=== PATIENT | male | born 1965 ===

== ENCOUNTER 2018-03-06 11:10 | Emergency (ER) | payer OTHER ==
[2018-03-06 11:19] VITALS: RESP 20
[2018-03-06] MEDS ORDERED: Sodium Chloride 0.9% 1,000 ML IV SCH (12:45)
--- NOTE | 2018-03-06 13:19 | CT ---
PROCEDURE: CT HEAD WITHOUT CONTRAST. HISTORY: headache COMPARISON: None available. TECHNIQUE: Axial computed tomography images were obtained through the head/brain without intravenous contrast. Radiation dose: Total exam DLP = 666.05 mGy-cm. This CT exam was performed using one or more of the following dose reduction techniques: Automated exposure control, adjustment of the mA and/or kV according to patient size, and/or use of iterative reconstruction technique. FINDINGS: HEMORRHAGE: No intracranial hemorrhage. BRAIN: No mass effect or edema. No atrophy or chronic microvascular ischemic changes. VENTRICLES: Unremarkable. No hydrocephalus. CALVARIUM: Unremarkable. PARANASAL SINUSES: Unremarkable as visualized. No significant inflammatory changes. MASTOID AIR CELLS: Unremarkable as visualized. No inflammatory changes. OTHER FINDINGS: None. IMPRESSION: Normal CT of the Head. No intracranial mass, hemorrhage or evidence of acute infarct.
[2018-03-06 13:25] LABS: BASO % 0.6 % (0.0-2.0); EOS % 0.4 % (0.0-4.0); LYMPH # 1.5 K/uL (1.0-4.3); LYMPH % 20.6 % (20.0-40.0); MEAN CELL VOLUME 93.3 fl (80.0-94.0); MEAN CORPUSCULAR HEMOGLOBIN 32.1 pg (27.0-31.0); MEAN CORPUSCULAR HGB CONC 34.4 g/dL (33.0-37.0); MEAN PLATELET VOLUME 8.8 fl (7.2-11.7); MONO # 0.4 K/uL (0.0-0.8); MONO % 5.7 % (0.0-10.0); NEUT # 5.4 K/uL (1.8-7.0); NEUT % 72.7 % (50.0-75.0); NRBC % 0.1 % (0.0-0.0); RBC 5.29 Mil/uL (4.40-5.90); RED CELL DISTRIBUTION WIDTH 12.7 % (11.5-14.5); WHITE BLOOD COUNT 7.5 K/uL (4.8-10.8)
--- NOTE | 2018-03-06 13:42 | CARD ---
APPROVED REPORT EKG Measurement Heart [id number] <Conclusion> Normal sinus rhythm Rightward axis Borderline ECG
[2018-03-06 13:44] LABS: ALBUMIN 4.3 g/dL (3.5-5.0); ALT/SGPT 44 U/L (21-72); AST/SGOT 34 U/L (17-59); BLOOD UREA NITROGEN 14 mg/dl (9-20); CALCIUM 9.7 mg/dL (8.4-10.2); GFR AFRICAN-AMERICAN > 60; GFR NON-AFRICAN AMERICAN > 60
--- NOTE | 2018-03-06 13:51 | ED PDOC ---
HPI: Headache Time Seen by Provider: 03/06/18 11:54 Chief Complaint (Nursing): Dizziness/Lightheaded Chief Complaint (Provider): Headache History Per: Patient History/Exam Limitations: no limitations Onset/Duration Of Symptoms: Hrs (07:00 ) Current Symptoms Are (Timing): Still Present Pain Scale Rating Of: 4 Preceeding Symptoms: None Associated Symptoms: denies: Photophobia, Blurred Vision, Nausea, Vomiting, Extremity Weakness Additional Complaint(s): Pato Taylor is a 52 year old male, with a past medical history of migraines, who was brought to the emergency department for evaluation of a 4/10 occipital headache onset since 07:00 this morning. Patient states he had a similar episode yesterday at which time it was associated with dizziness. Patient was seen and evaluated at [facility], he had normal blood work and was given medications through IV and discharged home. Patient states when headache returned this morning, he came back to ED because he wasn't given any prescriptions. He took no medications prior to arrival. Patient denies any fever , chills, neck pain or stiffness, weakness, numbness, changes in vision, nausea , vomit, photophobia, phonophobia, abdominal pain, chest pain or shortness of breath. No further medical complaints. PMD: None provided. Past Medical History Reviewed: Historical Data, Nursing Documentation, Vital Signs Vital Signs: Last Vital Signs Temp 98.6 F 03/06/18 11:16 Pulse 72 03/06/18 11:16 Resp 20 03/06/18 11:16 BP 122/73 03/06/18 11:16 Pulse Ox 98 03/06/18 11:16 - Medical History PMH: Migraine - Surgical History Surgical History: No Surg Hx - Family History Family History: States: No Known Family Hx - Social History Current smoker - smoking cessation education provided: No Alcohol: Social Drugs: Denies - Home Medications Home Medications: Ambulatory Orders Medication Instructions Recorded Meclizine [Meclizine*] 25 mg PO Q6 PRN #12 tab 03/06/18 Naproxen [Naprosyn] 500 mg PO BID PRN #20 tablet 03/06/18 - Allergies Allergies/Adverse Reactions: Allergies Allergy/AdvReac Type Severity Reaction Status Date / Time No Known Allergies Allergy Verified 03/06/18 11:15 Review of Systems ROS Statement: Except As Marked, All Systems Reviewed And Found Negative Constitutional: Negative for: Fever, Chills Eyes: Negative for: Vision Change Cardiovascular: Negative for: Chest Pain Respiratory: Negative for: Shortness of Breath Gastrointestinal: Negative for: Nausea, Vomiting, Abdominal Pain Musculoskeletal: Negative for: Neck Pain Neurological: Positive for: Headache (occipital). Negative for: Weakness, Numbness Physical Exam - Reviewed Nursing Documentation Reviewed: Yes Vital Signs Reviewed: Yes - Physical Exam Comments: GENERAL APPEARANCE: Patient is awake, alert, oriented x 3, in no acute distress. Resting comfortably. Nontoxic appearing. SKIN: Warm, dry; (-) cyanosis; (-) rash. HEAD: (-) scalp swelling or tenderness, (-) temporal artery tenderness. EYES: (-) conjunctival pallor, (-) scleral icterus. ENMT: TMs: (-) bulging (-) erythema. Ear canals patent bilaterally (-) cerumen impaction. Pharynx: clear (-) erythema (-) exudate, uvula midline. (-) sinus tenderness; mucous membranes are moist. Airway patent, (-) stridor. NECK: Supple, FROM (-) tenderness, (-) stiffness, (-) meningismus, (-) lymphadenopathy. CHEST AND RESPIRATORY: (-) rales, (-) rhonchi, (-) wheezes; breath sounds equal bilaterally. Speaking in full sentences, respirations even and nonlabored. HEART AND CARDIOVASCULAR: (-) irregularity; (-) murmur, (-) gallop. ABDOMEN AND GI: Soft; (-) tenderness (-) guarding (-) distention. EXTREMITIES: (-) deformity. NEURO AND PSYCH: Mental status as above. 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 Strength symmetric. Gait steady, speech clear. - Laboratory Results Result Diagrams: 03/06/18 13:20 03/06/18 13:20 - ECG O2 Sat by Pulse Oximetry: 98 (RA) Pulse Ox Interpretation: Normal Medical Decision Making Medical Decision Making: Time: 11:54 Initial Impression: headache Initial Plan: --Head w/o contrast [CT] --EKG --CMP --CBC w/ differential --Antivert 25 mg PO --Sodium Chloride 1,000 ml IV 1,000 mls/hr --Toradol 30 mg IVP --Reevaluation --IV access [id number] Labs reviewed and grossly unremarkable. CT head reviewed, radiology report follows: PROCEDURE: CT HEAD WITHOUT CONTRAST. HISTORY: headache COMPARISON: None available. TECHNIQUE: Axial computed tomography images were obtained through the head/brain without intravenous contrast. Radiation dose: Total exam DLP = 666.05 mGy-cm. This CT exam was performed using one or more of the following dose reduction techniques: Automated exposure control, adjustment of the mA and/or kV according to patient size, and/or use of iterative reconstruction technique. FINDINGS: HEMORRHAGE: No intracranial hemorrhage. BRAIN: No mass effect or edema. No atrophy or chronic microvascular ischemic changes. VENTRICLES: Unremarkable. No hydrocephalus. CALVARIUM: Unremarkable. PARANASAL SINUSES: Unremarkable as visualized. No significant inflammatory changes. MASTOID AIR CELLS: Unremarkable as visualized. No inflammatory changes. OTHER FINDINGS: None. IMPRESSION: Normal CT of the Head. No intracranial mass, hemorrhage or evidence of acute infarct. EKG: NSR @ 70bpm, (-) ST elevation, QTc 397 On re-evaluation, patient reports improvement of symptoms, denies any headache or dizziness. On exam, patient remains AAOx3, in no acute distress. Lungs clear to auscultation, cardiac RRR, abdomen soft, non-tender, repeat neuro exam shows no focal findings. VSS, stable for discharge. Lab/Diagnostic results d/w the patient in great detail. Diagnosis of headache, dizziness d/w the patient. Based on history, exam and diagnostic results, plan will be for outpatient follow up with clinic. Patient instructed to follow-up with pmd / referral provided / the clinic in 1- 2 days without fail. Advised to take medication as prescribed. Return to the emergency room at any time for any new or worsening symptoms. Patient states he fully agrees with and understands discharge instructions. States that he agrees with the plan and disposition. Verbalized and repeated discharge instructions and plan. I have given the patient opportunity to ask any additional questions. Scribe Attestation: Documented by Matthew Samano, acting as a scribe for Lanie Dorado PA-C. Provider Scribe Attestation: All medical record entries made by the Scribe were at my direction and personally dictated by me. I have reviewed the chart and agree that the record accurately reflects my personal performance of the history, physical exam, medical decision making, and the department course for this patient. I have also personally directed, reviewed, and agree with the discharge instructions and disposition. Disposition - Clinical Impression Clinical Impression: Dizziness, Headache - Patient ED Disposition Is Patient to be Admitted: No Counseled Patient/Family Regarding: Studies Performed, Diagnosis, Need For Followup, Rx Given - Disposition Referrals: [facility] [Outside] Disposition: Routine/Home Disposition Time: 14:27 Condition: STABLE Additional Instructions: FOLLOW UP WITH CLINIC IN 1-2 DAYS WITHOUT FAIL. RETURN TO ED WITH ANY NEW OR WORSENING SYMPTOMS. Thank you for letting us take care of you today. You were treated for headache, dizziness. The emergency medical care you received today was directed at your acute symptoms. If you were prescribed any medication, please fill it and take as directed. It may take several days for your symptoms to resolve. Return to the Emergency Department if your symptoms worsen, do not improve, or if you have any other problems. Please contact your doctor in 2 days for re-evaluation and follow up / or call one of the physicians/clinics you have been referred to that are listed on the Patient Visit Information form that is included in your discharge packet. Bring any paperwork you were given at discharge with you along with any medications you are taking to your follow up visit. Our treatment cannot replace ongoing medical care by a primary care provider (PCP) outside of the emergency department. Prescriptions: Meclizine [Meclizine*] 25 mg PO Q6 PRN #12 tab PRN Reason: Dizziness Naproxen [Naprosyn] 500 mg PO BID PRN #20 tablet PRN Reason: Headache Instructions: Headache, Adult, Dizziness, Nonvertigo, (DC), Migraine Headaches in Adults Forms: [employer] (Thai) Print Language: INDONESIAN - POA Present On Arrival: None Results - Lab Results Lab Results: 03/06/18 03/06/18 03/06/18 13:20 13:20 11:34 WBC 7.5 RBC 5.29 Hgb 17.0 Hct 49.4 MCV 93.3 MCH 32.1 H MCHC 34.4 RDW 12.7 Plt Count 197 MPV 8.8 Neut % (Auto) 72.7 Lymph % (Auto) 20.6 Brooks % (Auto) 5.7 Eos % (Auto) 0.4 Baso % (Auto) 0.6 Neut # (Auto) 5.4 Lymph # (Auto) 1.5 Brooks # (Auto) 0.4 Eos # (Auto) 0.0 Baso # (Auto) 0.0 Sodium 140 Potassium 4.2 Chloride 106 Carbon Dioxide 20 L Anion Gap 18 BUN 14 Creatinine 0.8 Est GFR ( Amer) > 60 Est GFR (Non-Af Amer) > 60 POC Glucose (mg/dL) 95 Random Glucose 107 Calcium 9.7 Total Bilirubin 0.7 AST 34 ALT 44 Alkaline Phosphatase 91 Total Protein 8.6 H Albumin 4.3 Globulin 4.3 H Albumin/Globulin Ratio 1.0
[2018-03-06 14:59] VITALS: BP 103/66; PULSE 70; TEMP 98.2
[2018-03-08 21:14] VITALS: O2SAT 98
== END 2018-03-06 15:03 | disposition home or self-care (01) ==
LOC: H.ER 11:10 → EDBD 11:10 → H.ER 15:03
DX: R42 Dizziness and giddiness (principal); R51 Headache
CPT/HCPCS: 70450; 80053; 82948; 85025; 93005; 96374; 99284; J1885; J7030

== ENCOUNTER 2018-06-30 11:11 | Emergency (ER) | payer OTHER ==
[2018-06-30 11:51] VITALS: RESP 18; TEMP 97.9
[2018-06-30] MEDS ORDERED: Sodium Chloride 0.9% 1,000 ML IV STA (12:11)
[2018-06-30 13:03] LABS: URINE BILIRUBIN NEGATIVE (NEGATIVE); URINE BLOOD NEGATIVE (NEGATIVE); URINE CLARITY CLEAR (Clear); URINE COLOR COLORLESS (YELLOW); URINE GLUCOSE (UA) NEG (Normal); URINE LEUKOCYTE ESTERASE NEG Leu/uL (Negative); URINE PROTEIN NEGATIVE (NEGATIVE); URINE UROBILINOGEN 0.2-1.0 mg/dL (0.2-1.0)
[2018-06-30 13:06] LABS: BASO # 0.1 K/uL (0.0-0.2); BASO % 0.6 % (0.0-2.0); EOS % 0.3 % (0.0-4.0); HEMOGLOBIN 16.7 g/dL (12.0-18.0); LYMPH # 1.7 K/uL (1.0-4.3); LYMPH % 17.8 % (20.0-40.0); MEAN CELL VOLUME 92.3 fl (80.0-94.0); MEAN CORPUSCULAR HEMOGLOBIN 32.4 pg (27.0-31.0); MEAN CORPUSCULAR HGB CONC 35.1 g/dL (33.0-37.0); MEAN PLATELET VOLUME 9.1 fl (7.2-11.7); MONO # 0.6 K/uL (0.0-0.8); MONO % 6.5 % (0.0-10.0); NEUT % 74.8 % (50.0-75.0); NRBC % 0.1 % (0.0-0.0); RBC 5.16 Mil/uL (4.40-5.90); RED CELL DISTRIBUTION WIDTH 12.6 % (11.5-14.5); WHITE BLOOD COUNT 9.4 K/uL (4.8-10.8)
[2018-06-30 13:16] LABS: ALB/GLOB RATIO 1.1 (1.0-2.1); ALBUMIN 4.4 g/dL (3.5-5.0); ALT/SGPT 49 U/L (21-72); AST/SGOT 34 U/L (17-59); BLOOD UREA NITROGEN 14 mg/dl (9-20); CALCIUM 9.4 mg/dL (8.4-10.2); GFR NON-AFRICAN AMERICAN > 60
--- NOTE | 2018-06-30 13:41 | ED PDOC ---
HPI: Abdomen Time Seen by Provider: 06/30/18 12:03 Chief Complaint (Nursing): Abdominal Pain Chief Complaint (Provider): Abdominal Pain History Per: Patient History/Exam Limitations: no limitations Onset/Duration Of Symptoms: Days (x1 day) Current Symptoms Are (Timing): Constant Associated Symptoms: Diarrhea, Other (dysuria with burning). denies: Fever, Vomiting Exacerbating Factors: Other (urination) Additional Complaint(s): France Root is a 52 year old male with no past medical history, who presents to the emergency department complaining of constant abdominal pain, onset x1 day ago. Patient states his pain is located in the lower abdomen and is worse upon urination. He further states he feels burning sensation upon dysuria and also reports to have resolved diarrhea. Patient denies vomiting or fever. PMD: No provider Past Medical History Reviewed: Historical Data, Nursing Documentation, Vital Signs Vital Signs: Last Vital Signs Temp 97.9 F 06/30/18 11:48 Pulse 75 06/30/18 11:48 Resp 18 06/30/18 11:48 BP 141/89 06/30/18 11:48 Pulse Ox 98 06/30/18 11:48 - Medical History PMH: Migraine - Surgical History Surgical History: No Surg Hx - Family History Family History: States: Unknown Family Hx - Social History Current smoker - smoking cessation education provided: No Ex-Smoker (has not smoked in the last 12 months): No Alcohol: None Drugs: Denies - Home Medications Home Medications: Ambulatory Orders Medication Instructions Recorded Naproxen [Naprosyn] 500 mg PO BID PRN #20 tablet 03/06/18 RX: Meclizine [Meclizine*] 25 mg PO Q6 PRN #12 tab 03/06/18 Ciprofloxacin HCl [Cipro] 500 mg PO BID #14 tablet 06/30/18 Metronidazole [Flagyl] 500 mg PO BID #14 tab 06/30/18 - Allergies Allergies/Adverse Reactions: Allergies Allergy/AdvReac Type Severity Reaction Status Date / Time No Known Allergies Allergy Verified 06/30/18 11:48 Review of Systems ROS Statement: Except As Marked, All Systems Reviewed And Found Negative Constitutional: Negative for: Fever Gastrointestinal: Positive for: Abdominal Pain (lower), Diarrhea (resolved). Negative for: Vomiting Genitourinary Male: Positive for: Dysuria Physical Exam - Reviewed Nursing Documentation Reviewed: Yes Vital Signs Reviewed: Yes - Physical Exam Appears: Positive for: Non-toxic, No Acute Distress Head Exam: Positive for: ATRAUMATIC, NORMOCEPHALIC Skin: Positive for: Normal Color, Warm, Dry Eye Exam: Positive for: EOMI Cardiovascular/Chest: Positive for: Regular Rate, Rhythm Respiratory: Positive for: Normal Breath Sounds. Negative for: Respiratory Distress Gastrointestinal/Abdominal: Positive for: Soft, Tenderness (suprapubic and RUQ tenderness ). Negative for: Distended Extremity: Positive for: Normal ROM Neurologic/Psych: Positive for: Alert, Oriented (x3) - Laboratory Results Result Diagrams: 06/30/18 13:00 06/30/18 13:00 - ECG O2 Sat by Pulse Oximetry: 98 (RA) Pulse Ox Interpretation: Normal - Progress Re-evaluation Time: 15:30 Condition: Re-examined, Improved Medical Decision Making Medical Decision Making: Initial Time: 12:11 Initial Impression: Abdominal pain and dysuria differential diagnosis includes but not limited to UTI, acute appendicitis and kidney stones. Initial Plan: --CT Abd and pelvis IV contrast --ED urine dipstick --Morphine 2 mg IVP --Sodium Chloride 1,000 ml --Urine culture --Urinalysis --CMP --CBC with differential Time: 15:03 CT Abdomen and Pelvis: FINDINGS: LOWER THORAX: Limited bilateral basilar dependent atelectasis identified as well as a small hiatal hernia. Cardiac size upper limits of normal. LIVER: Unremarkable. No gross lesion or ductal dilatation. GALLBLADDER AND BILE DUCTS: Unremarkable. PANCREAS: Unremarkable. No gross lesion or ductal dilatation. SPLEEN: Unremarkable. ADRENALS: Unremarkable. No mass. KIDNEYS AND URETERS: There is an 8 mm lucency at the upper pole left kidney difficult to characterize due to its small size. Streaky artifacts limiting accurate internal measurement. No obstructive uropathy bilaterally. No suspicious findings right kidney. VASCULATURE: Unremarkable. No aortic aneurysm. No aortic atherosclerotic calcification or mural plaque present. BOWEL: Evaluation of the gastrointestinal tract is limited due to the lack of oral contrast administration. Sigmoid diverticulosis identified with thickening of the mid to distal segment and local pericolic reactive change compatible with diverticulitis. No definite abscess formation appreciable at this time or free intra peritoneal gas collection. APPENDIX: Normal appendix. PERITONEUM: Pericolic reaction as discussed above with remainder the perineum unremarkable. LYMPH NODES: Unremarkable. No enlarged lymph nodes. BLADDER: Unremarkable. REPRODUCTIVE: Mild prostate enlargement to 5.7 cm. BONES: No acute fracture. OTHER FINDINGS: None. IMPRESSION: 1. Evidence of sigmoid diverticulitis at mid to distal sigmoid colon. No free intra peritoneal gas collection or abscess appreciable at this time. 2. No acute upper or mid abdominal findings. Small lucency is difficult to characterize at the upper pole left kidney. 3. Enlarged prostate gland. Scribe Attestation: Documented by Titus Ayala, acting as a scribe for Zulay Barahona MD. Provider Scribe Attestation: All medical record entries made by the Scribe were at my direction and personally dictated by me. I have reviewed the chart and agree that the record accurately reflects my personal performance of the history, physical exam, medical decision making, and the department course for this patient. I have also personally directed, reviewed, and agree with the discharge instructions and disposition. Disposition - Clinical Impression Clinical Impression: Diverticulitis - Patient ED Disposition Is Patient to be Admitted: No Doctor Will See Patient In The: Office Counseled Patient/Family Regarding: Studies Performed, Diagnosis, Need For Followup - Disposition Referrals: [facility] [Outside] [facility] [Outside] Disposition: Routine/Home Disposition Time: 15:30 Condition: GOOD Additional Instructions: [place], thank you for letting us take care of you today. Your provider was Zulay Barahona MD and you were treated for ABD PAIN. The emergency medical care you received today was directed at your acute symptoms. If you were prescribed any medication, please fill it and take as directed. It may take se veral days for your symptoms to resolve. Return to the Emergency Department if your symptoms worsen, do not improve, or if you have any other problems. Please contact your doctor or call one of the physicians/clinics you have been referred to that are listed on the Patient Visit Information form that is included in your discharge packet. Bring any paperwork you were given at discharge with you along with any medications you are taking to your follow up visit. Our treatment cannot replace ongoing medical care by a primary care provider outside of the emergency department. Thank you for allowing the [facility] team to be part of your care today. If you had an X-Ray or CT scan: A Radiologist will review the ED reading if any change in treatment is needed we will contact you. If you had a blood, urine, or wound culture: It will take several days for the results, if any change in treatment is needed we will contact you. If you had an STI test: It will take 48 hours for the results. Please call after 1 week if you have not heard back. Prescriptions: Ciprofloxacin HCl [Cipro] 500 mg PO BID #14 tablet Metronidazole [Flagyl] 500 mg PO BID #14 tab Instructions: Diverticulitis (DC) Forms: [facility] (Greek) Print Language: CITIZEN OF [place]
--- NOTE | 2018-06-30 15:07 | CT ---
Date of service: 06/30/2018 PROCEDURE: CT Abdomen and Pelvis with contrast HISTORY: RLQ and suprapubic pain dysuria COMPARISON: None. TECHNIQUE: Following the intravenous administration of iodinated contrast material, a CT examination of the abdomen and pelvis performed from the domes of the diaphragms to the symphysis pubis with reformatted datasets provided in axial, sagittal and coronal planes. Oral contrast was not administered as per referring physician request. Coronal and sagittal reformats were generated. contrast dose: Omnipaque 300, 95 cc Radiation dose: Total exam DLP = 558.37 mGy-cm. This CT exam was performed using one or more of the following dose reduction techniques: Automated exposure control, adjustment of the mA and/or kV according to patient size, and/or use of iterative reconstruction technique. FINDINGS: LOWER THORAX: Limited bilateral basilar dependent atelectasis identified as well as a small hiatal hernia. Cardiac size upper limits of normal. LIVER: Unremarkable. No gross lesion or ductal dilatation. GALLBLADDER AND BILE DUCTS: Unremarkable. PANCREAS: Unremarkable. No gross lesion or ductal dilatation. SPLEEN: Unremarkable. ADRENALS: Unremarkable. No mass. KIDNEYS AND URETERS: There is an 8 mm lucency at the upper pole left kidney difficult to characterize due to its small size. Streaky artifacts limiting accurate internal measurement. No obstructive uropathy bilaterally. No suspicious findings right kidney. VASCULATURE: Unremarkable. No aortic aneurysm. No aortic atherosclerotic calcification or mural plaque present. BOWEL: Evaluation of the gastrointestinal tract is limited due to the lack of oral contrast administration. Sigmoid diverticulosis identified with thickening of the mid to distal segment and local pericolic reactive change compatible with diverticulitis. No definite abscess formation appreciable at this time or free intra peritoneal gas collection. APPENDIX: Normal appendix. PERITONEUM: Pericolic reaction as discussed above with remainder the perineum unremarkable. LYMPH NODES: Unremarkable. No enlarged lymph nodes. BLADDER: Unremarkable. REPRODUCTIVE: Mild prostate enlargement to 5.7 cm. BONES: No acute fracture. OTHER FINDINGS: None. IMPRESSION: 1. Evidence of sigmoid diverticulitis at mid to distal sigmoid colon. No free intra peritoneal gas collection or abscess appreciable at this time. 2. No acute upper or mid abdominal findings. Small lucency is difficult to characterize at the upper pole left kidney. 3. Enlarged prostate gland.
[2018-06-30 19:29] VITALS: BP 127/67; PULSE 78
[2018-07-01 07:31] VITALS: O2SAT 98
== END 2018-06-30 18:30 | disposition home or self-care (01) ==
LOC: H.ER 11:11
DX: K57.32 Diverticulitis of large intestine without perforation or abscess without bleeding (principal); N40.0 Benign prostatic hyperplasia without lower urinary tract symptoms; Z87.891 Personal history of nicotine dependence
CPT/HCPCS: 74177; 80053; 81003; 85025; 87086; 96374; 99283; J2270; J7030

== ENCOUNTER 2018-08-20 07:59 | Emergency (ER) | payer OTHER ==
[2018-08-20 08:10] VITALS: RESP 18; O2SAT 99
[2018-08-20] MEDS ORDERED: Sodium Chloride 0.9% 1,000 ML IV STA (08:26)
--- NOTE | 2018-08-20 08:31 | ED PDOC ---
HPI: Abdomen Time Seen by Provider: 08/20/18 08:17 Chief Complaint (Nursing): Abdominal Pain Chief Complaint (Provider): Abdominal Pain History Per: Patient History/Exam Limitations: no limitations Onset/Duration Of Symptoms: Days (x2) Current Symptoms Are (Timing): Still Present Associated Symptoms: Diarrhea. denies: Fever Additional Complaint(s): 52 year old male presents to the ED with lower abdominal pain associated with diarrhea and increased flatulence for 2 days. Patient denies rectal bleeding, fever, or vomiting. He states he was seen here in June this year for similar symptoms and was diagnosed with diverticulitis. He was treated with Cipro and Flagyl at that time. PMD: none Past Medical History Reviewed: Historical Data, Nursing Documentation, Vital Signs Vital Signs: Last Vital Signs Temp 98.4 F 08/20/18 08:09 Pulse 65 08/20/18 08:09 Resp 18 08/20/18 08:09 BP 151/83 H 08/20/18 08:09 Pulse Ox 99 08/20/18 08:09 - Medical History PMH: Diverticulitis, Migraine - Surgical History Surgical History: No Surg Hx - Family History Family History: States: Unknown Family Hx - Home Medications Home Medications: Ambulatory Orders Medication Instructions Recorded Ciprofloxacin HCl [Cipro] 500 mg PO BID #20 tab 08/20/18 Dicyclomine [Dicyclomine HCl] 10 mg PO Q8 #10 cap 08/20/18 - Allergies Allergies/Adverse Reactions: Allergies Allergy/AdvReac Type Severity Reaction Status Date / Time No Known Allergies Allergy Verified 08/20/18 08:23 Review of Systems ROS Statement: Except As Marked, All Systems Reviewed And Found Negative Constitutional: Negative for: Fever Gastrointestinal: Positive for: Abdominal Pain, Diarrhea, Other (increased flatulence; no rectal bleeding). Negative for: Vomiting Physical Exam - Reviewed Nursing Documentation Reviewed: Yes Vital Signs Reviewed: Yes - Physical Exam Appears: Positive for: Non-toxic, No Acute Distress Head Exam: Positive for: ATRAUMATIC, NORMOCEPHALIC Skin: Positive for: Normal Color, Warm, Dry Eye Exam: Positive for: Normal appearance Neck: Positive for: Normal, Painless ROM Cardiovascular/Chest: Positive for: Regular Rate, Rhythm Respiratory: Positive for: Normal Breath Sounds. Negative for: Wheezing, Respiratory Distress Gastrointestinal/Abdominal: Positive for: Soft, Tenderness (mild bilateral lower abdominal tenderness). Negative for: Guarding, Rebound Extremity: Positive for: Normal ROM Neurologic/Psych: Positive for: Alert, Oriented. Negative for: Motor/Sensory Deficits - Laboratory Results Result Diagrams: 08/20/18 07:45 08/20/18 07:45 - ECG O2 Sat by Pulse Oximetry: 99 (RA) Pulse Ox Interpretation: Normal Medical Decision Making Medical Decision Making: Initial Plan: --CMP --CBC --Bentyl 10mg PO --Sodium chloride 1000mL IV Scribe Attestation: Documented by Brett Green acting as a scribe for Lloyd Steel MD. Provider Scribe Attestation: All medical record entries made by the Scribe were at my direction and personally dictated by me. I have reviewed the chart and agree that the record accurately reflects my personal performance of the history, physical exam, medical decision making, and the department course for this patient. I have also personally directed, reviewed, and agree with the discharge instructions and disposition. Disposition - Clinical Impression Clinical Impression: Diverticular disease - Patient ED Disposition Is Patient to be Admitted: No Counseled Patient/Family Regarding: Studies Performed, Diagnosis, Need For Followup, Rx Given - Disposition Referrals: [facility] [Outside] Raymundo Ibanez MD [Staff Provider] - Disposition: Routine/Home Disposition Time: 09:40 Condition: FAIR Prescriptions: Ciprofloxacin HCl [Cipro] 500 mg PO BID #20 tab Dicyclomine [Dicyclomine HCl] 10 mg PO Q8 #10 cap Instructions: Diverticulosis Forms: [facility] (Japanese) Print Language: BULGARIAN
[2018-08-20 08:40] LABS: BASO % 0.5 % (0.0-2.0); EOS % 0.6 % (0.0-4.0); LYMPH # 1.9 K/uL (1.0-4.3); LYMPH % 26.3 % (20.0-40.0); MEAN CELL VOLUME 95.5 fl (80.0-94.0); MEAN CORPUSCULAR HEMOGLOBIN 32.4 pg (27.0-31.0); MEAN CORPUSCULAR HGB CONC 33.9 g/dL (33.0-37.0); MEAN PLATELET VOLUME 9.4 fl (7.2-11.7); MONO # 0.4 K/uL (0.0-0.8); NEUT # 4.9 K/uL (1.8-7.0); NEUT % 66.6 % (50.0-75.0); NRBC % 0.1 % (0.0-0.0); RBC 4.94 Mil/uL (4.40-5.90); RED CELL DISTRIBUTION WIDTH 12.9 % (11.5-14.5); WHITE BLOOD COUNT 7.3 K/uL (4.8-10.8)
[2018-08-20 08:53] LABS: ALB/GLOB RATIO 1.2 (1.0-2.1); ALBUMIN 4.1 g/dL (3.5-5.0); ALT/SGPT 50 U/L (21-72); AST/SGOT 36 U/L (17-59); BLOOD UREA NITROGEN 14 mg/dl (9-20); CALCIUM 8.8 mg/dL (8.4-10.2); GFR NON-AFRICAN AMERICAN > 60
[2018-08-20 10:32] VITALS: BP 139/84; PULSE 62; TEMP 98.5
== END 2018-08-20 10:39 | disposition home or self-care (01) ==
LOC: H.ER 07:59
DX: K57.90 Diverticulosis of intestine, part unspecified, without perforation or abscess without bleeding (principal)
CPT/HCPCS: 80053; 85025; 96360; 96361; 99283; J7030

== ENCOUNTER 2018-10-15 09:51 | Emergency (ER) | payer OTHER, SELFPAY ==
[2018-10-15 09:56] VITALS: BMI 28.3
[2018-10-15 09:58] VITALS: RESP 17; O2SAT 98
[2018-10-15] MEDS ORDERED: Iohexol 240 (50 ml) PO ONE (11:10)
[2018-10-15] MEDS ORDERED: Sodium Chloride 0.9% 1,000 ML IV ONE (11:12)
[2018-10-15] MEDS ORDERED: Iohexol 240 (50 ml) ONE (11:19)
[2018-10-15 11:28] LABS: BASO % 0.3 % (0.0-2.0); EOS # 0.1 K/uL (0.0-0.7); HEMOGLOBIN 15.9 g/dL (12.0-18.0); LYMPH # 1.2 K/uL (1.0-4.3); LYMPH % 21.2 % (20.0-40.0); MEAN CELL VOLUME 93.2 fl (80.0-94.0); MEAN CORPUSCULAR HGB CONC 34.3 g/dL (33.0-37.0); MEAN PLATELET VOLUME 9.6 fl (7.2-11.7); MONO # 0.5 K/uL (0.0-0.8); MONO % 9.1 % (0.0-10.0); NEUT % 68.4 % (50.0-75.0); RBC 4.98 Mil/uL (4.40-5.90); RED CELL DISTRIBUTION WIDTH 13.2 % (11.5-14.5); WHITE BLOOD COUNT 5.8 K/uL (4.8-10.8)
[2018-10-15 11:34] LABS: URINE BACTERIA RARE (<OCC); URINE BILIRUBIN NEGATIVE (NEGATIVE); URINE BLOOD SMALL (NEGATIVE); URINE CLARITY SLIGHTY-CLOUDY (Clear); URINE COLOR YELLOW (YELLOW); URINE GLUCOSE (UA) NEG (NEGATIVE); URINE LEUKOCYTE ESTERASE NEG Leu/uL (Negative); URINE PROTEIN NEGATIVE (NEGATIVE); URINE UROBILINOGEN 0.2-1.0 mg/dL (0.2-1.0)
[2018-10-15 11:37] LABS: ALB/GLOB RATIO 1.2 (1.0-2.1); ALBUMIN 4.1 g/dL (3.5-5.0); ALT/SGPT 41 U/L (21-72); AST/SGOT 38 U/L (17-59); BLOOD UREA NITROGEN 17 mg/dl (9-20); CALCIUM 8.7 mg/dL (8.4-10.2); GFR NON-AFRICAN AMERICAN > 60; LIPASE 51 U/L (23-300)
[2018-10-15] MEDS ORDERED: Sodium Chloride 0.9% 50 ML IV ONE (14:05)
[2018-10-15] MEDS ORDERED: Iohexol 300 100 ML IJ ONE (14:05)
--- NOTE | 2018-10-15 14:59 | CT ---
Date of service: 10/15/2018 PROCEDURE: CT Abdomen and Pelvis with contrast HISTORY: r/o acute abdomen -- RLQ pain COMPARISON: None. TECHNIQUE: Contrast dose: 100 mL of Omnipaque 300 Radiation dose: Total exam DLP = 500.29 mGy-cm. This CT exam was performed using one or more of the following dose reduction techniques: Automated exposure control, adjustment of the mA and/or kV according to patient size, and/or use of iterative reconstruction technique. FINDINGS: LOWER THORAX: Unremarkable. LIVER: Unremarkable. No gross lesion or ductal dilatation. GALLBLADDER AND BILE DUCTS: Unremarkable. PANCREAS: Unremarkable. No gross lesion or ductal dilatation. SPLEEN: Unremarkable. ADRENALS: Unremarkable. No mass. KIDNEYS AND URETERS: No hydronephrosis. A posterior left upper renal pole approximately 1 cm hypodensity-its Hounsfield units are consider targeted renal elective ultrasound for further evaluation. VASCULATURE: . No aortic aneurysm. No aortic atherosclerotic calcification or mural plaque present. BOWEL: Redundant rectosigmoid colon with diverticulosis. No gross diverticulitis seen. No obstruction. No gross mural thickening. APPENDIX: Normal appendix. PERITONEUM: Unremarkable. No free fluid. No free air. LYMPH NODES: Unremarkable. No enlarged lymph nodes. BLADDER: Unremarkable. REPRODUCTIVE: Enlarged prostate 2.8 x 5.3 cm. With central coalescent low-density calcifications suggested cephalo caudal extent of the prostate is approximately 4.2 cm. BONES: No acute fracture. Thoraco lumbar spondylosis. OTHER FINDINGS: None. IMPRESSION: No bowel obstruction or diverticulitis noted. There is rectosigmoid diverticulosis and redundancy here noted. No appendicitis noted. No hydronephrosis. Left posterior upper renal pole intra cortical approximately 1 cm mass who has Hounsfield units are slightly greater than a typical cyst. Consider elective targeted renal ultrasound for further evaluation. Heterogeneous prostate with calcifications. Other findings as above.
--- NOTE | 2018-10-15 15:14 | ED PDOC ---
HPI: Abdomen Time Seen by Provider: 10/15/18 10:06 Chief Complaint (Nursing): GI Problem Chief Complaint (Provider): Difuse Abdominal Pain History Per: Patient History/Exam Limitations: no limitations Onset/Duration Of Symptoms: Days (two) Outside of [place] travel?: No Current Symptoms Are (Timing): Still Present Severity: Mild Location Of Pain/Discomfort: Diffuse Quality Of Discomfort: "Pain" Associated Symptoms: Nausea (Pt presents to the ED complaining of two days of d ifuse abdominal pain and nausea with one occasion of vomiting; Pt indicates that these symptoms are new onset and seem unrelated to food or oral intake. Pt denies diarhhea) Past Medical History Reviewed: Historical Data, Nursing Documentation, Vital Signs Vital Signs: Last Vital Signs Temp 98.1 F 10/15/18 09:57 Pulse 79 10/15/18 09:57 Resp 17 10/15/18 09:57 BP 133/79 10/15/18 09:57 Pulse Ox 98 10/15/18 10:01 - Medical History PMH: Diverticulitis, Migraine - Family History Family History: States: Unknown Family Hx - Home Medications Home Medications: Ambulatory Orders Medication Instructions Recorded Ciprofloxacin HCl [Cipro] 500 mg PO BID #20 tab 08/20/18 Dicyclomine [Dicyclomine HCl] 10 mg PO Q8 #10 cap 08/20/18 - Allergies Allergies/Adverse Reactions: Allergies Allergy/AdvReac Type Severity Reaction Status Date / Time No Known Allergies Allergy Verified 10/15/18 10:01 Review of Systems ROS Statement: Except As Marked, All Systems Reviewed And Found Negative Gastrointestinal: Positive for: Nausea, Vomiting, Abdominal Pain. Negative for: Diarrhea Physical Exam - Reviewed Nursing Documentation Reviewed: Yes Vital Signs Reviewed: Yes - Physical Exam Appears: Positive for: Well, Non-toxic, No Acute Distress. Negative for: Uncomfortable Head Exam: Positive for: ATRAUMATIC, NORMAL INSPECTION Skin: Positive for: Normal Color, Warm, Dry. Negative for: Diaphoresis, Pallor, Rash Eye Exam: Positive for: Normal appearance, EOMI, PERRL. Negative for: Nystagmus, Periorbital swelling, Periorbital tenderness Neck: Positive for: Normal, Painless ROM, Supple. Negative for: Decreased ROM Cardiovascular/Chest: Positive for: Regular Rate, Rhythm Respiratory: Positive for: Normal Breath Sounds Pulses-Carotid (L): 2+ Pulses-Carotid (R): 2+ Pulses-Radial (L): 2+ Pulses-Radial (R): 2+ Gastrointestinal/Abdominal: Positive for: Normal Exam, Bowel Sounds (active in all four quadrants), Soft. Negative for: Tenderness, Distended, Guarding, Rebound (there is no rebound tenderness or guarding; there is no tenderness at [place] point nor is there a positive morrissey sign; the lianet and rovsing signs are negative as is the psoas sign) Back: Positive for: Normal Inspection. Negative for: L CVA Tenderness, R CVA Tenderness, Vertebral Tenderness - Laboratory Results Result Diagrams: 10/15/18 11:15 10/15/18 11:15 Lab Results: Total Bilirubin 0.6 mg/dl (0.2-1.3) 10/15/18 11:15 AST 38 U/L (17-59) 10/15/18 11:15 ALT 41 U/L (21-72) 10/15/18 11:15 Alkaline Phosphatase 94 U/L (38-126) 10/15/18 11:15 Total Protein 7.6 G/DL (6.3-8.2) 10/15/18 11:15 Albumin 4.1 g/dL (3.5-5.0) 10/15/18 11:15 Globulin 3.5 gm/dL (2.2-3.9) 10/15/18 11:15 Albumin/Globulin Ratio 1.2 (1.0-2.1) 10/15/18 11:15 Lipase 51 U/L (23-300) 10/15/18 11:15 Urine Color Yellow (YELLOW) 10/15/18 11:15 Urine Clarity Slighty-cloudy (Clear) 10/15/18 11:15 Urine pH 6.0 (5.0-8.0) 10/15/18 11:15 Ur Specific [place] 1.021 (1.003-1.030) 10/15/18 11:15 Urine Protein Negative mg/dL (NEGATIVE) 10/15/18 11:15 Urine Glucose (UA) Neg mg/dL (NEGATIVE) 10/15/18 11:15 Urine Ketones 20 mg/dL (NEGATIVE) 10/15/18 11:15 Urine Blood Small (NEGATIVE) 10/15/18 11:15 Urine Nitrate Negative (NEGATIVE) 10/15/18 11:15 Urine Bilirubin Negative (NEGATIVE) 10/15/18 11:15 Urine Urobilinogen 0.2-1.0 mg/dL (0.2-1.0) 10/15/18 11:15 Ur Leukocyte Esterase Neg Allen/uL (Negative) 10/15/18 11:15 Urine RBC (Auto) 3 /hpf (0-3) 10/15/18 11:15 Urine Microscopic WBC 1 /hpf (0-5) 10/15/18 11:15 Urine Bacteria Rare (<OCC) 10/15/18 11:15 - ECG O2 Sat by Pulse Oximetry: 98 Medical Decision Making Medical Decision Making: R/O acute abdomen Disposition - Clinical Impression Clinical Impression: Diverticulitis - Patient ED Disposition Is Patient to be Admitted: No Doctor Will See Patient In The: Office Counseled Patient/Family Regarding: Diagnosis, Need For Followup - Disposition Referrals: [facility] [Outside] Disposition: Routine/Home Disposition Time: 15:20 Condition: STABLE Instructions: Diverticulitis, Diverticulitis (DC) Forms: [facility] (Mozambican), [facility] (Setswana) Print Language: INDONESIAN
[2018-10-15 16:15] VITALS: BP 110/70; PULSE 72; TEMP 96.4
== END 2018-10-15 16:15 | disposition home or self-care (01) ==
LOC: H.ER 09:51
DX: K57.92 Diverticulitis of intestine, part unspecified, without perforation or abscess without bleeding (principal)
CPT/HCPCS: 74177; 80053; 81003; 83690; 85025; 87804; 96374; 99285; J2405; J7030; Q9966; Q9967